=== PATIENT | male | born 1960 | race African-American/Black ===

== ENCOUNTER 2021-11-22 06:02 | Observation (INO) | payer MEDICARE ==
[2021-11-18 11:05] LABS: BASOPHILS % 0.9 % (0.0-1.0); EOSINOPHILS # (AUTO) 0.1 (0.0-0.4); EOSINOPHILS % 2.7 % (0.0-6.0); HEMATOCRIT 47.3 % (38.2-49.6); HEMOGLOBIN 15.3 g/dL (14.0-18.0); LYMPHOCYTES # (AUTO) 1.6 (1.0-3.2); LYMPHOCYTES % 35.6 % (18.0-39.1); MEAN CORPUSCULAR HGB CONC 32.3 g/dL (31-35); MEAN CORPUSCULAR VOLUME 86.6 fL (81-99); MONOCYTES # (AUTO) 0.4 (0.2-0.8); MONOCYTES % 8.3 % (4.4-11.3); NEUTROPHILS # (AUTO) 2.3 (2.1-6.9); NEUTROPHILS % 52.3 % (38.7-80.0); PLATELET COUNT 173 x10e3/uL (140-360); RED BLOOD COUNT 5.46 x10e6/uL (4.3-5.7); RED CELL DISTRIBUTION WIDTH 13.2 % (11.7-14.4)
[2021-11-18 11:17] LABS: INR 0.87; PROTHROMBIN TIME 12.7 seconds (11.9-14.5)
[2021-11-18 11:18] LABS: PARTIAL THROMBOPLASTIN TIME 26.7 seconds (23.8-35.5)
[2021-11-18 11:27] LABS: ALBUMIN 3.8 g/dL (3.5-5.0); ALBUMIN/GLOBULIN RATIO 0.9 (0.8-2.0); ANION GAP 15.1 mmol/L (8-16); CALCIUM 9.3 mg/dL (8.4-10.2); CREATININE, SERUM 0.84 mg/dL (0.72-1.25); POTASSIUM 4.1 mmol/L (3.5-5.1)
[~2021-11-22] VITALS: Ht 185.4 cm; Wt 108.9 kg
[~2021-11-22 06:02] MED LIST: AMLODIPINE BESY10 MG PO; CELECOXIB 200 MG CAP ONE; DEXAMETHASONE SOD PHOS 10 MG/1 ML VIAL ONE; GABAPENTIN 300 MG CAP ONE; LOSARTAN POTASS25 MG PO; OMEPRAZOLE40 MG PO
[2021-11-22] MEDS ORDERED: Vancomycin IV 1,000 MG ONE (06:37)
[2021-11-22] MEDS ORDERED: TRANEXAMIC ACID 20 ML ONE (06:37)
[2021-11-22] MEDS ORDERED: SODIUM CHLORIDE 0.9% 500ML 500 ML ONE (06:37)
[2021-11-22] MEDS ORDERED: ROPIVACAINE 246.25 MG, EPINEPHRINE HCL 1:1000 1ML 0.5 MG, CLONIDINE HCL 0.08 MG, KETORO... INJ ONE ×5 (07:30)
[2021-11-22] MEDS ORDERED: DOCUSATE SODIUM 100 MG CAP PO PRN (09:00)
[2021-11-22] MEDS ORDERED: KETOROLAC TROMETHAMINE 30 MG/ML VIAL IV PRN (09:00)
[2021-11-22] MEDS ORDERED: ZOLPIDEM TARTRATE 5 MG TAB PO PRN (09:00)
[2021-11-22] MEDS ORDERED: ACETAMINOPHEN 650 MG SUPP PR PRN (09:00)
[2021-11-22] MEDS ORDERED: DIPHENHYDRAMINE HCL INJ 50 MG/ML VIAL IV PRN (09:00)
[2021-11-22] MEDS ORDERED: ONDANSETRON HCL INJ 2MG/ML 2ML 2 MG/ML VIAL IV PRN (09:00)
[2021-11-22] MEDS ORDERED: HYDROCODONE/APAP 5MG-325MG TAB PO PRN (09:00)
[2021-11-22] MEDS ORDERED: FENTANYL CITRATE/PF 100MCG/2 ML INJ ONE ×2 (09:31→13:21)
[2021-11-22] MEDS ORDERED: HYDROMORPHONE 1MG/1ML INJ ONE (09:41)
[2021-11-22] MEDS ORDERED: MEPERIDINE HCL INJ 25 MG/ML VIAL ONE (09:44)
[2021-11-22] MEDS: HYDROCODONE/APAP 7.5MG-325MG 1 EA TAB PO PRN ×2 (10:30→14:30)
[2021-11-22 10:55] VITALS: BP 140/95
[2021-11-22] MEDS ORDERED: SODIUM CHLORIDE 0.9% 1000ML 1,000 ML IV SCH (11:00)
[2021-11-22 11:21] VITALS: BP 140/95
[2021-11-22 11:41] VITALS: BP 140/95
[2021-11-22 11:55] VITALS: BP 140/98
[2021-11-22] MEDS: ASPIRIN 325 MG TAB PO SCH ×2 (11:59→17:32)
[2021-11-22] MEDS ORDERED: ONDANSETRON HCL INJ 2MG/ML 2ML 2 MG/ML VIAL ONE (12:46)
[2021-11-22] MEDS ORDERED: POVIDONE IODINE 0.05% 0.05 % ML PO ONE (12:46)
[2021-11-22] MEDS ORDERED: DEXAMETHASONE SOD PHOS INJ 4 MG/ML SDV ONE (12:46)
[2021-11-22] MEDS ORDERED: LIDOCAINE HCL 2% LOCAL INJ 5 ML SDV VIAL INJ ONE (12:46)
[2021-11-22] MEDS ORDERED: ACETAMINOPHEN 1000 MG/100 ML IV ONE (12:46)
[2021-11-22] MEDS ORDERED: PROPOFOL IV EMULSION 10 MG/ML 20 ML VIAL ONE (12:46)
[2021-11-22] MEDS ORDERED: SEVOFLURANE INHAL SOLN 250 ML PEN BTL ONE (12:46)
[2021-11-22] MEDS ORDERED: MIDAZOLAM HCL 2 MG/2 ML VIAL ONE (13:21)
[2021-11-22] MEDS ORDERED: ROPIVACAINE 0.5% 5 MG/ML 30 ML SDV ONE (15:05)
[2021-11-22 16:34] VITALS: BP 128/93
[2021-11-22] MEDS ORDERED: CELECOXIB 200 MG CAP PO SCH (17:00)
[2021-11-23] MEDS ORDERED: ACETAMINOPHEN 1000 MG/100 ML IV PRN (09:00)
== END 2021-11-22 17:48 | disposition home health service (06) ==
LOC: OR 06:02 → PACU V 09:14 → MED/SURG 10:11
PROVIDERS: ADMIT Specialist; ATTEND Specialist
DX: M17.12 Unilateral primary osteoarthritis, left knee (principal); K29.70 Gastritis, unspecified, without bleeding; Z86.19 Personal history of other infectious and parasitic diseases; I10 Essential (primary) hypertension; Z01.812 Encounter for preprocedural laboratory examination; Z20.822 Contact with and (suspected) exposure to COVID-19
CPT/HCPCS: 0223U; 27447; 36415; 73560; 80053; 85025; 85610; 85730; 86850; 86900; 86920; 94799; 97116; 97162; 97530; C1713 ×2; C1776 ×4; G0378; J0131; J0171; J0690; J1100 ×2; J1170; J1885; J2001; J2175; J2405; J2704; J2795; J3010; J3370; J7040; J2250

== ENCOUNTER 2022-07-10 07:37 | Observation (INO) | payer MEDICARE ==
[~2022-07-10] VITALS: Ht 185.4 cm; Wt 108.9 kg
[~2022-07-10 07:37] MED LIST changes: +CEFAZOLIN SODIUM 2 GM ONE; +SODIUM CHLORIDE 0.9% 500ML 500 ML ONE; +TRANEXAMIC ACID 20 ML ONE; +Vancomycin IV 1,000 MG ONE
[2022-07-10] MEDS ORDERED: ROPIVACAINE 246.25 MG, EPINEPHRINE HCL 1:1000 1ML 0.5 MG, CLONIDINE HCL 0.08 MG, KETORO... INJ ONE ×5 (08:00)
[2022-07-10] MEDS ORDERED: HYDROCODONE/APAP 5MG-325MG TAB PO PRN (08:30)
[2022-07-10] MEDS ORDERED: ONDANSETRON HCL INJ 2MG/ML 2ML 2 MG/ML VIAL IV PRN (08:30)
[2022-07-10] MEDS ORDERED: DIPHENHYDRAMINE HCL INJ 50 MG/ML VIAL IV PRN (08:30)
[2022-07-10] MEDS ORDERED: DOCUSATE SODIUM 100 MG CAP PO PRN (08:30)
[2022-07-10] MEDS ORDERED: HYDROCODONE/APAP 7.5MG-325MG 1 EA TAB PO PRN (08:30)
[2022-07-10] MEDS ORDERED: HYDROMORPHONE 1MG/1ML INJ ONE (09:20)
[2022-07-10] MEDS ORDERED: KETOROLAC TROMETHAMINE 30 MG/ML VIAL ONE (09:35)
[2022-07-10 10:33] VITALS: BP 121/89
[2022-07-10 10:44] VITALS: BP 137/77
[2022-07-10] MEDS: SODIUM CHLORIDE 0.9% 1000ML 1,000 ML IV SCH ×2 (11:22→21:00)
[2022-07-10] MEDS: ASPIRIN 325 MG TAB PO SCH ×2 (11:22→16:47)
[2022-07-10] MEDS ORDERED: ROPIVACAINE 0.5% 5 MG/ML 30 ML SDV ONE (13:11)
[2022-07-10] MEDS ORDERED: FENTANYL CITRATE/PF 100MCG/2 ML INJ ONE ×2 (13:16→13:22)
[2022-07-10] MEDS ORDERED: MIDAZOLAM HCL 2 MG/2 ML VIAL ONE (13:22)
[2022-07-10] MEDS ORDERED: LIDOCAINE HCL 2% LOCAL INJ 5 ML SDV VIAL INJ ONE (13:47)
[2022-07-10] MEDS ORDERED: ONDANSETRON HCL INJ 2MG/ML 2ML 2 MG/ML VIAL ONE (13:47)
[2022-07-10] MEDS ORDERED: SEVOFLURANE INHAL SOLN 250 ML PEN BTL ONE (13:47)
[2022-07-10] MEDS ORDERED: GLYCOPYRROLATE INJ 0.2 MG/ML VIAL ONE (13:47)
[2022-07-10] MEDS ORDERED: PROPOFOL IV EMULSION 10 MG/ML 20 ML VIAL ONE (13:47)
[2022-07-10] MEDS ORDERED: POVIDONE IODINE 0.05% 0.05 % ML PO ONE (13:47)
[2022-07-10] MEDS: CELECOXIB 200 MG CAP PO SCH (16:47)
[2022-07-10 17:00] VITALS: BP 130/90
[2022-07-10 20:00] VITALS: BP 134/95
[2022-07-10 20:15] VITALS: BP 134/95
[2022-07-11] VITALS: BP 100/61
[2022-07-11 04:00] VITALS: BP 145/94
[2022-07-11 06:11] LABS: HEMATOCRIT 33.5 % (38.2-49.6); HEMOGLOBIN 11.1 g/dL (14.0-18.0)
[2022-07-11] MEDS: SODIUM CHLORIDE 0.9% 1000ML 1,000 ML IV SCH (07:00)
[2022-07-11] MEDS ORDERED: ACETAMINOPHEN 1000 MG/100 ML IV PRN (08:30)
[2022-07-11 08:44] VITALS: BP 127/80
[2022-07-11] MEDS: CELECOXIB 200 MG CAP PO SCH (09:13)
[2022-07-11] MEDS: ASPIRIN 325 MG TAB PO SCH (09:13)
[2022-07-11] MEDS ORDERED: ONDANSETRON HCL 4 MG ORAL DISINTEGRATING TAB PO PRN (12:30)
== END 2022-07-11 12:23 | disposition home health service (06) ==
LOC: OR 07:37 → PACU V 08:46 → IMCU 10:37 → MED/SURG3 18:22
PROVIDERS: ADMIT Specialist; ATTEND Specialist
DX: M17.0 Bilateral primary osteoarthritis of knee (principal); Z96.652 Presence of left artificial knee joint; K29.70 Gastritis, unspecified, without bleeding; B18.2 Chronic viral hepatitis C; I10 Essential (primary) hypertension; Z20.822 Contact with and (suspected) exposure to COVID-19; Z01.818 Encounter for other preprocedural examination
CPT/HCPCS: 0223U; 27447; 36415 ×3; 73560; 82948 ×2; 85014; 85018; 86850; 86900; 86920; 94799 ×2; 97116 ×3; 97162; 97530 ×3; C1713 ×2; C1776 ×4; G0378 ×2; J0171; J0690 ×2; J1100; J1170; J1885; J2001; J2250; J2405; J2704; J2795; J3010; J3370; J7030; J7040